=== PATIENT | female | born 2005 | race Caucasian/White ===

== ENCOUNTER 2025-08-13 01:21 | Emergency (ER) | payer OTHER ==
[~2025-08-13] VITALS: Ht 160 cm; Wt 52.6 kg
--- NOTE | 2025-08-13 02:13 | ERN ---
ED Note History of Present Illness Stated Complaint: C/O VAGINAL BLEEDING WITH ABD CRAMPING; 8 WKS PRE Chief Complaint: Vaginal Bleeding Time Seen by MD: 01:28 Dictation: This is a very pleasant 20-year-old female who came in to the ER stating that she is approximately 8 weeks and began having profuse vaginal bleeding today. Stated that that she used 3 pads so far She also reported that she had a previous miscarriage around 7 weeks. She does report some cramping in the lower abdomen would denied any back pain. No fever chills or rigors. No dysuria hematuria. She does not knowing any specific reasons for her initial miscarriage. Her appointment with the [facility] Dr. Liriano is pending Temperature 97.5 pulse 85 respirations 20 blood pressure 126/71 with a pulse oximetry of 100% on room air Allergies: Coded Allergies: No Known Allergies (Unverified Allergy, Unknown, 08/13/25) Past Medical History Past Medical History: No Pertinent History Surgical History: None Family History: Negative Social History: Negative LMP: Jun 29, 2025 : 2 Para: 0 Aborts: 1 RN Note Reviewed/Agreed w/PFSH: Yes Review of System Dictation Constitutional: Negative for fever,chills, and weight loss Eyes: Negative for injury, pain,redness, and discharge ENT: Negative for injury,pain or swelling Cardiovascular: Negative for chest pain, palpitations, and edema Respiratory: Negative for shortness of breath, cough, and wheezing, Abdomen/GI: Negative for abdominal pain, nausea, vomiting, diarrhea, and constipation Back: Negative for injury and pain : Negative for injury, bleeding and discharge positive for vaginal bleeding and abdominal cramping MS/Extremity: Negative for injury and deformity Skin: Negative for rash, and discoloration Neuro: Negative for headache, weakness, numbness, tingling, and seizure Psych: Negative for suicide ideation, homicidal ideation, and hallucinations Initial Vital Sign VS Vital Signs Date Time Temp Pulse Resp B/P (MAP) Pulse Ox O2 Delivery O2 Flow Rate FiO2 08/13/25 01:26 97.5 85 20 126/71 100 Room Air 08/13/25 02:28 0 21 Physical Exam Dictation General: awake, alert, NAD Head/Face: Normocephalic, atraumatic Eyes: PERRL, EOMI, vision at baseline ENT: oral cavity clear, TMs clear, no signs of infection Neck: Trachea midline, supple, no nuchal rigidity Cardiovascular: RRR, normal S1/S2, No MRGs, no JVD Respiratory: CTAB, no respiratory distress, No rales or wheezes Abdomen: Soft, non-tender, non-distended, normal bowel sounds, no guarding or rebound. --positive vaginal bleed Skin: Warm, dry, normal turgor, no rash MS/Extremity: Pulses equal, no cyanosis, neurovascular intact, FROM Neuro: COAx4, GCS 15, strength 5/5, CN 2-12 intact, normal cerebellar exam, nor mal gait, Psych: Normal behavior, mood, and affect normal Extremities-trace edema without any palpable cords, Homans sign is negative Results (Laboratory/Radiology) Laboratory/Radiology Laboratory Tests Test 08/13/25 02:22 White Blood Count 8.8 K/uL (4.8-10.8) Red Blood Count 4.09 MIL/uL (4.00-5.50) Hemoglobin 11.9 g/dL (12.0-16.0) L Hematocrit 35.5 % (36-48) L Mean Corpuscular Volume 86.8 fL (79-99) Mean Corpuscular Hemoglobin 29.1 pg (27.0-33.0) Mean Corpuscular Hemoglobin Concent 33.5 g/dL (32.0-36.0) Red Cell Distribution Width 12.0 % (11.0-15.5) Platelet Count 212 K/uL (130-400) Mean Platelet Volume 9.8 fL (7.5-10.5) Immature Granulocyte % (Auto) 0.5 % (0-1) Neutrophils (%) (Auto) 62.7 % (40.0-77.0) Lymphocytes (%) (Auto) 26.9 % (21.0-51.0) Monocytes (%) (Auto) 7.8 % (3.0-13.0) Eosinophils (%) (Auto) 1.6 % (0.0-8.0) Basophils (%) (Auto) 0.5 % (0.0-5.0) Neutrophils # (Auto) 5.5 K/uL (1.8-7.7) Lymphocytes # (Auto) 2.4 K/uL (1.0-4.8) Monocytes # (Auto) 0.7 K/uL (0.1-1.0) Eosinophils # (Auto) 0.14 K/uL (0.00-0.70) Basophils # (Auto) 0.04 K/uL (0.00-0.20) Absolute Immature Granulocyte (auto 0.04 K/uL (0-1) Nucleated Red Blood Cells 0.0 % (0.0-0.19) Sodium Level 140 mmol/L (136-145) Potassium Level 3.5 mmol/L (3.5-5.1) Chloride Level 103 mmol/L (101-111) Carbon Dioxide Level 28 mmol/L (21-32) Blood Urea Nitrogen 8 mg/dL (7-18) Creatinine 0.6 mg/dL (0.5-1.0) Glomerular Filtration Rate Calc 130 mL/min (>90) Random Glucose 99 mg/dL (70-105) Total Calcium 9.2 mg/dL (8.5-10.1) Human Chorionic Gonadotropin, Quant 4024 mIU/mL (0-5) H Labs Reviewed?: Yes Ultrasound Comment: REASON: 8 weeks - cramping and bleeding ORDERING PHYSICIAN: TONY MARTINEZ MD PROCEDURE: OB <14 - US OB <14 WEEKS EXAM: US Obstetrical, Complete <14 weeks CLINICAL HISTORY: 8 weeks of - cramping and bleeding TECHNIQUE: Transabdominal imaging of the maternal pelvis and a < 14-week gestation with image documentation. COMPARISON: None provided. FINDINGS: Last menstrual period is 06/27/2025. UTERUS: Unremarkable. No myometrial mass. It measures 8.7 x 4.2 x 4.3 cm. The endometrium measures 15 mm. Heterogeneous, ill-defined content is noted within the endometrial cavity. The gestational sac and parts are not visualized in the current scan. A test is not available. CERVIX: Closed. Unremarkable. Single cervix. OVARIES: Unremarkable. No mass. The right ovary measures 3.2 x 2.2 x 2.5 cm. There is a normal flow. A dominant follicle of size 1 x 0.4 x 1.2 cm was noted. The left ovary measures 3.4 x 1.7 x 2.4 cm. There is a normal flow. There is a dominant follicle measuring 1.1 x 1.1 x 1.1 cm. FREE FLUID: No free fluid. IMPRESSION: No intrauterine seen at this time. Incidental finding of two endometrial linings with a single cervix, suggesting a possibility of a bicornuate versus a septate uterus. Advise MRI pelvis /[place] DICTATED BY: LELA MCCULLOUGH Jr., MD DATE: 08/13/25425 ELECTRONICALLY SIGNED BY: LELA MCCULLOUGH Jr., MD DATE: 08/13/25425 ED Course ED Course Orders Procedure Category Date Status Time Cbc With Differential LAB 08/13/25 Complete 01: Hcg,Quantitative LAB 08/13/25 Complete 01: Basic Metabolic Panel LAB 08/13/25 Complete 01: Us Ob <14 Weeks US 08/13/25 Resulted 01:28 Vital Signs Date Time Temp Pulse Resp B/P (MAP) Pulse Ox O2 Delivery O2 Flow Rate FiO2 08/13/25 04:45 98.8 85 18 110/52 100 Room Air* 0 21 08/13/25 02:28 98.8 89 18 116/56 98 Room Air* 0 21 08/13/25 01:26 97.5 85 20 126/71 100 Room Air Medical Decision Making MDM Differential diagnosis Vaginitis, hormonal fluctuations, implantation bleeding, subchorionic hemorrhage with placenta previa, threat of This is a very pleasant 20-year-old female who came in to the ER stating that she is approximately 8 weeks and began having profuse vaginal bleeding today. Stated that that she used 3 pads so far She also reported that she had a previous miscarriage around 7 weeks. She does report some cramping in the lower abdomen would denied any back pain. No fever chills or rigors. No dysuria hematuria. She does not knowing any specific reasons for her initial miscarriage. Her appointment with the [facility] tower [employer] Dr. Liriano is pending Temperature 97.5 pulse 85 respirations 20 blood pressure 126/71 with a pulse oximetry of 100% on room air 3:00 a.m. labs reviewed CBC showed a hemoglobin of 11.9 and BNP 7 is with a normal limits. 3:40 a.m. Ob ultrasound less than 14 weeks-resulted and and per radiology report there was no fetus visible or gestational sac visible. He made a mention of a possibility of septate uterus or bicornuate uterus. I went over the labs and also ultrasound report and she was expecting that she likely lost her . I instructed her to keep her appointment with Dr. Liriano and discuss the ultrasound findings and see if that has any bearing to her miscarriages. Verbalized full understanding Rationale: Tests considered and ordered secondary to shared decision making include: Blood work, OB ultrasound Previous outside records reviewed: Old ER visits. Risk of complication and/or morbidity or mortality of patient management: None Medications-Per medication reconciliation Need for hospitalization: Patient does not meet criteria for hospitalization. Need for emergency major/minor surgery: No There are no social concerns with this patient. Prescription drug management Prescriptions will include symptomatic care Patient's prior external medical records from other ER visits were reviewed by me as indicated. Prior testing and results from previous visits were reviewed. Prior tests were taken into account with medical decision making and resource utilization, independent historian/historians were used to obtain complete medical history. I independently interpreted the test that were performed, results were reviewed by me and considered findings on radiology if ordered. Medical management and examination interpretation discussions were had by me with other qualified healthcare professionals as indicated for the patient's care. Problem List Problem List: (1) Vaginal bleeding affecting early (2) Incomplete without complication (3) Bicornuate uterus DX & DISP Disposition: Discharge Departure Impression: Primary Impression: Vaginal bleeding affecting early Additional Impressions: Incomplete without complication, Bicornuate uterus Condition: Stable Additional Instructions: Patient and the caregiver have been informed of all the diagnostic tests and the imaging conducted during the today's visit to the emergency room and has verbalized understanding of the results I have personally reviewed and interpreted all diagnostic exams performed here in the ER today as well as the vital signs documented by the nursing staff. The patient is now being discharged to home and should follow up with the primary care physician or the specialist as directed by the ER staff. Patient has not appointment with the [facility]er[facility] tower loader Dr. Liriano which I recommended that she keep to discuss the OB ultrasound results and the uterine abnormalities Referrals: SELF,REFERRAL (PCP) TONY MARTINEZ MD Aug 13, 2025 02:13
[2025-08-13 02:40] LABS: CREATININE 0.6 mg/dL (0.5-1.0); GLOMERULAR FILTR. RATE CALC 130.0 mL/min (>90); GLUCOSE,RANDOM 99.0 mg/dL (70-105); SODIUM SERUM 140.0 mmol/L (136-145); UREA NITROGEN, BLOOD 8.0 mg/dL (7-18)
[2025-08-13 02:42] LABS: IMMATURE GRANULOCYTE ABSOLUTE 0.04 K/uL (0-1); NUCLEATED RED BLOOD CELLS 0.0 % (0.0-0.19); PLATELET COUNT (AUTO) 212 K/uL (130-400); RED BLOOD CELL COUNT(AUTO) 4.09 MIL/uL (4.00-5.50); RED CELL DISTRIBUTION WIDTH 12.0 % (11.0-15.5); WHITE BLOOD COUNT (AUTO) 8.8 K/uL (4.8-10.8)
--- NOTE | 2025-08-13 03:28 | HMCIMG ---
EXAM: US Obstetrical, Complete <14 weeks CLINICAL HISTORY: 8 weeks of - cramping and bleeding TECHNIQUE: Transabdominal imaging of the maternal pelvis and a < 14-week gestation with image documentation. COMPARISON: None provided. FINDINGS: Last menstrual period is 06/27/2025. UTERUS: Unremarkable. No myometrial mass. It measures 8.7 x 4.2 x 4.3 cm. The endometrium measures 15 mm. Heterogeneous, ill-defined content is noted within the endometrial cavity. The gestational sac and parts are not visualized in the current scan. A test is not available. CERVIX: Closed. Unremarkable. Single cervix. OVARIES: Unremarkable. No mass. The right ovary measures 3.2 x 2.2 x 2.5 cm. There is a normal flow. A dominant follicle of size 1 x 0.4 x 1.2 cm was noted. The left ovary measures 3.4 x 1.7 x 2.4 cm. There is a normal flow. There is a dominant follicle measuring 1.1 x 1.1 x 1.1 cm. FREE FLUID: No free fluid. IMPRESSION: No intrauterine seen at this time. Incidental finding of two endometrial linings with a single cervix, suggesting a possibility of a bicornuate versus a septate uterus. Advise MRI pelvis /[place]
[2025-08-13 04:45] VITALS: BP 110/52; PULSE 85; RESP 18; TEMP 98.8; O2SAT 100
== END 2025-08-13 04:45 | disposition home or self-care (01) ==
LOC: EDH 01:21
DX: O03.4 Incomplete spontaneous abortion without complication (principal); O34.01 Maternal care for unspecified congenital malformation of uterus, first trimester; Q51.3 Bicornate uterus; Z3A.08 8 weeks gestation of pregnancy
CPT/HCPCS: 36415; 76801; 80048; 84702; 85025; 99284